=== PATIENT | male | born 1995 | race Caucasian/White ===

== ENCOUNTER 2022-06-01 19:28 | Emergency (ER) | payer SELFPAY ==
--- NOTE | 2022-06-01 19:30 | NUR ---
Patient does not wish to proceed with medical care recommended by . Patient given information related to possible complications, up to and including , which could occur as a result of leaving hospital at this time. Patient verbalizes understanding of risks involved leaving against medical advice. Patient has signed AMA form. DR. KENDALL TO SEE PATIENT, PATIENT A/OX4, ACTING APPROPRIATE AND AMBULATED WITHOUT ISSUE. 16G IV TAKEN OUT AND EXPLAINED RISKS, UP TO AND INCLUDING FOR PATIENT TO SIGN AMA. PATIENT SIGNED PAPER.
[2022-06-01 19:58] VITALS: BP_SYST 118
== END 2022-06-01 19:30 | disposition left against medical advice (07) ==
LOC: SED 19:28
DX: F10.129 Alcohol abuse with intoxication, unspecified (principal); Y90.6 Blood alcohol level of 120-199 mg/100 ml; Z79.899 Other long term (current) drug therapy
CPT/HCPCS: 99281; 99283